=== PATIENT | female | born 1970 | race Caucasian/White ===

== ENCOUNTER 2017-04-06 20:37 | Emergency (ER) | payer OTHER ==
[2017-04-06 20:51] VITALS: BP 134/69
[2017-04-06] MEDS ORDERED: Aspirin Low Dose CHEW TAB* 81 MG PO ONE (21:09)
--- NOTE | 2017-04-06 21:10 | UC ---
Cardiac HPI - HPI Summary HPI Summary: 46 yr old healthy female c/o CP that started last night at 8/10 and has not stopped since then. pain 8/10. left chest. radiates into back and down left arm. denies n/v. hurts to take a deep breath. sharp, not dull. did not take anything for it. rested in chair all day today. denies h/o smoking, dm, htn, lipids. + fhx - both parents CAD in older yrs. she drove herself here. - History of Current Complaint Chief Complaint: UCChestPain Stated Complaint: chest pain Time Seen by Provider: 04/06/17 20:41 - Allergy/Home Medications Allergies/Adverse Reactions: Allergies Allergy/AdvReac Type Severity Reaction Status Date / Time No Known Allergies Allergy Verified 04/06/17 20:50 PMH/Surg Hx/FS Hx/Imm Hx Previously Healthy: Yes - Surgical History Surgical History: Yes Surgery Procedure, Year, and Place: knee surgery. gall bladder'. tubal. c section X1 - Family History Known Family History: Positive: Cardiac Disease - both parents, Hypertension - Social History Alcohol Use: Rare Substance Use Type: None Smoking Status (MU): Never Smoked Tobacco Review of Systems Constitutional: Negative Skin: Negative Eyes: Negative ENT: Negative Respiratory: Negative Cardiovascular: Chest Pain Gastrointestinal: Negative Genitourinary: Negative Motor: Negative Neurovascular: Negative Musculoskeletal: Negative Neurological: Negative Psychological: Negative All Other Systems Reviewed And Are Negative: Yes Physical Exam Triage Information Reviewed: Yes Appearance: Well-Nourished, Pain Distress - sitting very still supine on exam table. Vital Signs: Initial Vital Signs Temp 98.7 F 04/06/17 20:48 Pulse 80 04/06/17 20:48 Resp 20 04/06/17 20:48 BP 134/69 04/06/17 20:48 Pulse Ox 99 04/06/17 20:48 Vital Signs Reviewed: Yes Eye Exam: Normal ENT Exam: Normal ENT: Positive: Pharynx normal Dental Exam: Normal Neck exam: Normal Neck: Positive: Supple, Nontender, No Lymphadenopathy Respiratory Exam: Normal Respiratory: Positive: Lungs clear, Normal breath sounds, No respiratory distress, No accessory muscle use Cardiovascular Exam: Normal Cardiovascular: Positive: RRR, No Murmur, Pulses Normal, Brisk Capillary Refill Abdomen Description: Positive: Nontender, Soft Musculoskeletal: Positive: Other: - mild chest wall tenderness Neurological Exam: Normal Psychological Exam: Normal Skin Exam: Normal - Assessment/Plan Course Of Treatment: EKG - NSR, nml axis, no AV/IV changes, no ST/T changes. Advised ER for further evaluation. She wishes to drive herself which is unsafe d /t harm to herself and other drivers. She refuses ambulance. She called her sister to come get her and take her. Aware of risks of severe medical issues occuring en route to hospital. She wishes to go to [facility]. - Differential Diagnoses - Chest Pain Differential Diagnosis/HQI/PQRI: Acute VT, Angina, Aortic Aneurysm, Pulmonary Edema - Differential Diagnoses - Hypertension Differential Diagnosis/HQI PQRI: AAA - Differential Diagnoses - Palpitations Differential Diagnosis/HQI/PQRI: Pericarditis - Clinical Impression Provider Diagnoses: chest pain, r/o dissecting aneurysm, r/o PE - Physician Notifications Discussed Patient Care With: Partha Perez NP Time Discussed With Above Provider: 21:00 Discharge - Discharge Plan Condition: Guarded Disposition: AGAINST MEDICAL ADVICE
[2017-04-06] MEDS ORDERED: Aspirin Low Dose CHEW TAB* 81 MG ONE (21:14)
== END 2017-04-06 21:25 | disposition left against medical advice (07) ==
LOC: UCCORT 20:37
DX: R07.9 Chest pain, unspecified (principal); Z82.49 Family history of ischemic heart disease and other diseases of the circulatory system
CPT/HCPCS: 93005; 99213; A9270-GY; G0463